=== PATIENT | male | born 1980 | race Hispanic/Latino ===

== ENCOUNTER 2022-06-12 22:21 | Emergency (ER) | payer SELFPAY ==
[2022-06-12] MEDS ORDERED: Ibuprofen 800 MG TAB ONE (23:37)
== END 2022-06-13 00:29 | disposition home or self-care (01) ==
LOC: MADERS 22:21
DX: B34.9 Viral infection, unspecified (principal); I10 Essential (primary) hypertension; Z79.899 Other long term (current) drug therapy
CPT/HCPCS: 87081; 87430; 87804; 99283

== ENCOUNTER 2022-06-20 13:51 | Emergency (ER) | payer SELFPAY ==
[2022-06-20] MEDS ORDERED: predniSONE 20 MG TAB ONE (14:12)
[2022-06-20] MEDS ORDERED: predniSONE 10 MG TAB ONE (14:12)
[2022-06-20] MEDS ORDERED: Ketorolac Tromethamine 30 MG/ML VIAL ONE (14:37)
== END 2022-06-20 14:55 | disposition home or self-care (01) ==
LOC: MADERS 13:51
DX: B34.9 Viral infection, unspecified (principal); Z20.822 Contact with and (suspected) exposure to COVID-19; I10 Essential (primary) hypertension; F17.210 Nicotine dependence, cigarettes, uncomplicated; Z79.899 Other long term (current) drug therapy
CPT/HCPCS: 71045; 96372; J1885; J7512; J7620; U0003; U0005

== ENCOUNTER 2024-01-19 11:37 | Emergency (ER) | payer SELFPAY ==
[2024-01-19] MEDS ORDERED: Ketorolac Tromethamine 30 MG (1 mL) VIAL ONE (12:35)
[2024-01-19 12:39] LABS: Influenza A by NAA Not Detected (NotDetected); Influenza B by NAA Not Detected (NotDetected); SARS-CoV-2 NAA Rapid Test DETECTED (NotDetected)
== END 2024-01-19 13:38 | disposition home or self-care (01) ==
LOC: MADERS 11:37
DX: U07.1 COVID-19 (principal); R06.02 Shortness of breath; I10 Essential (primary) hypertension; F17.210 Nicotine dependence, cigarettes, uncomplicated
CPT/HCPCS: 71046; 96372; J1885

== ENCOUNTER 2024-06-12 13:05 | Emergency (ER) | payer OTHER ==
[~2024-06-12 13:05] MED LIST: Iopamidol 370 76% 100 ML VIAL ONE
[2024-06-12] MEDS ORDERED: Ondansetron PF 4 MG/2 ML Vial ONE (13:33)
[2024-06-12] MEDS ORDERED: Morphine 4 MG/ML VIAL ONE (13:33)
[2024-06-12] MEDS ORDERED: Aspirin Chewable 81 MG TAB ONE (13:34)
[2024-06-12 13:42] LABS: #Basophils 0.1 thou/uL (0.0-0.2); #Eosinophils 0.2 thou/uL (0.0-0.7); #Lymphocytes 1.8 thou/uL (1.20-3.40); #Monocytes 0.4 thou/uL (0.11-0.59); #Neutrophils 4.6 thou/uL (1.40-6.50); %Basophils 1.7 % (0.0-1.0); %Eosinophils 2.4 % (0.0-10.0); %Lymphocytes 25.3 % (21.0-51.0); %Monocytes 5.5 % (0.0-10.0); %Neutrophils 65.1 % (42.0-75.0); Hematocrit 52.4 % (42.0-52.0); Hemoglobin 16.8 g/dL (14.0-18.0); Mean Corpuscular HGB CONC 32.1 g/dL (32.0-36.0); Mean Corpuscular Hemoglobin 30.9 pg (27.0-31.0); Mean Corpuscular Volume 96.3 fl (78.0-98.0); Mean Platelet Volume 8.9 fL (7.4-10.4); Platelet Count 325 10x3/uL (130-400); RBC Distribution Width 11.4 % (11.5-14.5); Red Blood Cell (RBC) Count 5.45 mill/uL (4.70-6.10); White Blood Cell (WBC) Count 7.1 10x3/uL (4.8-10.8)
[2024-06-12] MEDS ORDERED: Methocarbamol 1 GM (10 mL) VIAL ONE (13:53)
[2024-06-12 13:57] LABS: ALT (SGPT) 23 U/L (8-55); AST (SGOT) 14 U/L (5-34); Alkaline Phosphatase 95 U/L (40-110); Anion Gap 16 mmol/L (10-20); BUN (Urea Nitrogen) 7 mg/dL (8.9-20.6); Bilirubin, Total 0.7 mg/dL (0.2-1.2); CK (CPK) 47 U/L (30-200); Calc. Creatinine Clearance 0 mL/min (70-130); Calcium 9.6 mg/dL (7.8-10.44); Carbon Dioxide 24 mmol/L (22-29); Chloride 104 mmol/L (98-107); Estimated GFR 108; Globulin 3.2 g/dL (2.4-3.5); Glucose 156 mg/dL (70-105); Magnesium 2.2 mg/dL (1.6-2.6); Potassium 4.3 mmol/L (3.5-5.1); Protein, Total 7.2 g/dL (6.0-8.3); Sodium 140 mmol/L (136-145)
[2024-06-12 14:02] LABS: Troponin I Less than 0.010 ng/mL (< 0.028)
[2024-06-12] MEDS ORDERED: Lorazepam 2 MG/ML VIAL ONE (14:26)
== END 2024-06-12 16:45 | disposition short-term general hospital (02) ==
LOC: MADERS 13:05
DX: M25.511 Pain in right shoulder (principal); I10 Essential (primary) hypertension; F17.210 Nicotine dependence, cigarettes, uncomplicated
CPT/HCPCS: 71046; 71275; 74174; 80053; 82550; 83735; 84484; 85025; 85379; 86140; 93005; 94760; 96374; 96375; J2060; J2272; J2405; J2800; Q9967

== ENCOUNTER 2024-06-17 14:59 | Emergency (ER) | payer OTHER ==
[2024-06-17] MEDS ORDERED: Lidocaine 4% Patch ONE (16:00)
[2024-06-17] MEDS ORDERED: traMADol HCl 50 MG TAB ONE (16:00)
== END 2024-06-17 16:20 | disposition home or self-care (01) ==
LOC: MADERS 14:59
DX: M54.2 Cervicalgia (principal); I10 Essential (primary) hypertension; F17.210 Nicotine dependence, cigarettes, uncomplicated; Z55.0 Illiteracy and low-level literacy; Z59.00 Homelessness unspecified
CPT/HCPCS: 99283

== ENCOUNTER 2024-07-09 11:56 | Emergency (ER) | payer OTHER ==
[2024-07-09] MEDS ORDERED: Diazepam 10 MG/2 ML SYRINGE ONE (12:42)
[2024-07-09] MEDS ORDERED: Sodium Chloride 0.9% 1,000 ML ONE ×2 (12:42→13:32)
[2024-07-09] MEDS ORDERED: Ketorolac Tromethamine 30 MG (1 mL) VIAL ONE (12:42)
[2024-07-09 12:55] LABS: #Basophils 0.1 thou/uL (0.0-0.2); #Eosinophils 0.2 thou/uL (0.0-0.7); #Lymphocytes 2.1 thou/uL (1.20-3.40); #Monocytes 0.7 thou/uL (0.11-0.59); %Basophils 1.3 % (0.0-1.0); %Eosinophils 1.6 % (0.0-10.0); %Lymphocytes 20.7 % (21.0-51.0); %Monocytes 7.3 % (0.0-10.0); %Neutrophils 69.2 % (42.0-75.0); Hematocrit 50.1 % (42.0-52.0); Hemoglobin 16.6 g/dL (14.0-18.0); Mean Corpuscular HGB CONC 33.1 g/dL (32.0-36.0); Mean Corpuscular Hemoglobin 30.9 pg (27.0-31.0); Mean Corpuscular Volume 93.5 fl (78.0-98.0); Mean Platelet Volume 8.2 fL (7.4-10.4); Platelet Count 422 10x3/uL (130-400); RBC Distribution Width 10.8 % (11.5-14.5); Red Blood Cell (RBC) Count 5.36 mill/uL (4.70-6.10); White Blood Cell (WBC) Count 10.1 10x3/uL (4.8-10.8)
[2024-07-09 13:10] LABS: Anion Gap 16 mmol/L (10-20); BUN (Urea Nitrogen) 11 mg/dL (8.9-20.6); Calc. Creatinine Clearance 0 mL/min (70-130); Calcium 9.6 mg/dL (7.8-10.44); Carbon Dioxide 23 mmol/L (22-29); Chloride 100 mmol/L (98-107); Estimated GFR 108; Glucose 173 mg/dL (70-105); Potassium 4.1 mmol/L (3.5-5.1); Sodium 135 mmol/L (136-145)
[2024-07-09] MEDS ORDERED: Acetaminophen 325 MG TAB ONE (13:32)
== END 2024-07-09 13:48 | disposition home or self-care (01) ==
LOC: MADERS 11:56
DX: M54.12 Radiculopathy, cervical region (principal); I10 Essential (primary) hypertension; F17.210 Nicotine dependence, cigarettes, uncomplicated
CPT/HCPCS: 80048; 85025; 96374; 96375; J1885; J3360; J7030